=== PATIENT | male | born 1975 | race Two or more races ===

== ENCOUNTER 2020-12-13 13:10 | Emergency (ER) | payer MEDICAID, OTHER ==
[~2020-12-13] VITALS: Ht 175.3 cm; Wt 90.7 kg
[2020-12-13 15:44] VITALS: BP 132/80
== END 2020-12-13 15:49 | disposition home or self-care (01) ==
LOC: ER 13:10
DX: S46.912A Strain of unspecified muscle, fascia and tendon at shoulder and upper arm level, left arm, initial encounter (principal); X50.9XXA Other and unspecified overexertion or strenuous movements or postures, initial encounter; Y93.89 Activity, other specified; Y92.89 Other specified places as the place of occurrence of the external cause; Y99.8 Other external cause status
CPT/HCPCS: 73090

== ENCOUNTER 2022-02-13 19:41 | Emergency (ER) | payer MEDICAID, OTHER ==
[~2022-02-13] VITALS: Ht 172.7 cm; Wt 90.7 kg
[2022-02-13 19:41] VITALS: BP 116/80
[2022-02-13] MEDS ORDERED: traMADol HCL 50 MG TAB PO ONE (20:15)
== END 2022-02-13 21:50 | disposition home or self-care (01) ==
LOC: ER 19:41
DX: S86.911A Strain of unspecified muscle(s) and tendon(s) at lower leg level, right leg, initial encounter (principal); S16.1XXA Strain of muscle, fascia and tendon at neck level, initial encounter; S09.8XXA Other specified injuries of head, initial encounter; V43.52XA Car driver injured in collision with other type car in traffic accident, initial encounter; Y93.89 Activity, other specified; Y92.488 Other paved roadways as the place of occurrence of the external cause; Y99.8 Other external cause status
CPT/HCPCS: 70450; 72125; 73560